=== PATIENT | female | born 2000 | race Caucasian/White ===

== ENCOUNTER 2021-12-24 02:03 | Day surgery (SDC) | payer BC, SELFPAY ==
[2021-12-17 13:52] VITALS: BMI 21.2
--- NOTE | 2021-12-23 11:08 | P.HP_ITS ---
History of Present Illness History of Present Illness Consent: Risks, benefits, and alternatives have been discussed and questions answered. Patient agrees to proceed with procedure. Chief complaint: GERD Narrative: Anca White is a 21 year old female with complaints of indigestion, inability to burp, generalized bloating, and constipation.? She is here with her mom.? Anca tells me these symptoms have been going on for many years.? Reports indigestions every time she eats with radiation up into chest. She can not identify any particular foods but energy drinks tend to make it worse (rarely drinks them). She drinks several cups of coffee daily. She states after eating she becomes very bloated (looks like she is ) and can not complete a full meal. Mom states she has lost 15 pounds over the past several months . She states that her stomach always hurts. She does not eat breakfast because of the pain. She states that her stomach gets extremely distended. She held her hands about 5 in above her abdomen to show me the extent of the distention. He seems to be there all the time although coincidentally, the she does not have distention now. Her discomfort is diffuse, she covers her entire abdomen with her hands to show me the location. She states that she took dicyclomine for a month without benefit and also pantoprazole without benefit. She states that she cannot have a bowel movement; she feels she cannot pass gas either. When s he does have a bowel movement it is small hard balls Review of Systems Review of Systems: All systems reviewed & are unremarkable except as noted in HPI and below PMFSH Past Medical History Medical History Anxiety Early satiety GERD (gastroesophageal reflux disease) IBS (irritable bowel syndrome) Migraine Social History Social History Smoking status: Never smoker Substance use type: does not use Living arrangements: with family Spiritual care concerns: No Meds Home Medications and Allergies Home Medications Medication Instructions Recorded Confirmed Type ascorbic acid (vitamin C) 500 mg 500 mg PO DAILY 12/02/21 12/24/21 History tablet,extended release multivitamin with minerals 1 tablet PO DAILY 12/02/21 12/24/21 History (Hair,Skin and Nails tablet) Allergies Allergy/AdvReac Type Severity Reaction Status Date / Time peanut Allergy Severe Anaphylaxis Verified 12/24/21 11:18 Exam Const: General: alert Orientation/consciousness: patient oriented x3 Resp: Auscultation: clear to auscultation bilaterally Cardio: Rhythm: regular rhythm GI: GI Palp: Yes Soft to palpation and No Tenderness to palpation present (GI) Neuro: General: patient oriented x3 Assessment and Plan Assessment and plan (1) Early satiety: Code(s): R68.81 - Early satiety Status: Acute Assessment and Plan: EGD with possible biopsy or dilatation or cautery.
--- NOTE | 2021-12-24 11:19 | WPDANESEPPF ---
Anes - Initial Pre Proc Eval Procedure: Operation Date: 12/24/21 12:30 Proposed Procedures p Esophagogastroduodenoscopy - Momo Moss MD Date/Time: 12/24/21 11:19 Surgeon: Momo Moss MD Pre Op Diagnosis: GERD Patient Data Age: 21 Gender: F Height: 1.65 m Weight: 58 kg Allergies Allergy/AdvReac Type Severity Reaction Status Date / Time peanut Allergy Severe Anaphylaxis Verified 12/24/21 11:18 Home Medications Medication Instructions Recorded Confirmed Type ascorbic acid (vitamin C) 500 mg 500 mg PO DAILY 12/02/21 12/24/21 History tablet,extended release multivitamin with minerals 1 tablet PO DAILY 12/02/21 12/24/21 History (Hair,Skin and Nails tablet) Patient hx anesthesia problems: none Family hx anesthesia problems: none Results Review: All pre-operative results and documents have been reviewed as part of the pre-operative evaluation. [facility] Past Medical History Medical History (Updated 12/02/21 @ 12:18 by Fany Beyer APN-Katelyn) Anxiety Early satiety GERD (gastroesophageal reflux disease) IBS (irritable bowel syndrome) Migraine Social History Social History Smoking status: Never smoker Substance use type: does not use Living arrangements: with family Spiritual care concerns: No Anes - Eval Final PreProcedure Day of Procedure 12/24/21 11:19 Patient weight: normal Heart: regular rate and rhythm Lungs: clear to auscultation and normal air movement Airway: Mallampati scale class II Neurological: alert and oriented Last oral intake: >/= 8 hours ASA classification: II Emergent: no Anesthetic plan: proceed Anesthesia type and monitoring: general GIVS Results Review: All pre-operative results and documents have been reviewed as part of the pre-operative evaluation. Informed Consent: The patient's anesthetic plan and its attendant risks and benefits were discussed with the patient/family/POA. Questions were solicited and answers provided to the satisfaction of the patient/family/POA.
[2021-12-24 11:20] VITALS: BP 97/63; PULSE 68; RESP 18; TEMP 36.2; O2SAT 99
[2021-12-24] MEDS: LACTATED RINGERS 1,000 ML 150 ML IV CONT (12:15)
[2021-12-24 12:36] VITALS: BP 79/43; PULSE 62; RESP 16; O2SAT 99
[2021-12-24 12:46] VITALS: BP 78/46; PULSE 62; RESP 16; O2SAT 99
[2021-12-24 12:56] VITALS: BP 82/50; PULSE 62; RESP 16; O2SAT 99
== END 2021-12-24 13:20 | disposition home or self-care (01) ==
PROVIDERS: PCP Internal Medicine; Visit Provider Internal Medicine Gastroenterology
PROC: 0DJ08ZZ Inspection of Upper Intestinal Tract, Via Natural or Artificial Opening Endoscopic (ICD-10-PCS; CPT 43235; principal; 2021-12-24 12:30)
DX: R10.13 Epigastric pain (principal); R68.81 Early satiety; R14.0 Abdominal distension (gaseous)
CPT/HCPCS: 43239; 87081; 88305; J2704; J7120